=== PATIENT | female | born 1990 | race Two or more races ===

== ENCOUNTER 2021-08-06 15:30 | Inpatient (IN) | payer OTHER ==
[~2021-08-06] VITALS: Ht 149.9 cm; Wt 3.6 kg
[2021-08-28] MEDS ORDERED: PRENATAL TABLE1 EAC1 PO (07:37)
[2021-08-30] MEDS ORDERED: ONDANSETRON HCL8 MG (10:34)
== END 2021-09-01 11:51 | disposition home or self-care (01) | DRG 788 ==
LOC: LDR 08-28 05:20 → SURG-SUITE 08-29 04:46 → OB/GYN 09-03 15:30
PROVIDERS: ADMIT Obstetrics & Gynecology; ATTEND Obstetrics & Gynecology
PROC: 10907ZC Drainage of Amniotic Fluid, Therapeutic from Products of Conception, Via Natural or Artificial Opening (ICD-10-PCS; 2021-08-28)
PROC: 3E0P7VZ Introduction of Hormone into Female Reproductive, Via Natural or Artificial Opening (ICD-10-PCS; 2021-08-28)
PROC: 3E033VJ Introduction of Other Hormone into Peripheral Vein, Percutaneous Approach (ICD-10-PCS; 2021-08-28)
PROC: 4A1HXFZ Monitoring of Products of Conception, Cardiac Rhythm, External Approach (ICD-10-PCS; 2021-08-28)
PROC: 10D00Z1 Extraction of Products of Conception, Low, Open Approach (ICD-10-PCS; principal; 2021-08-29 03:00)
PROC: 30233N1 Transfusion of Nonautologous Red Blood Cells into Peripheral Vein, Percutaneous Approach (ICD-10-PCS; 2021-08-30)
DX: O99.02 Anemia complicating childbirth (principal); O62.1 Secondary uterine inertia; O61.0 Failed medical induction of labor; D64.9 Anemia, unspecified; Z3A.39 39 weeks gestation of pregnancy; Z37.0 Single live birth